=== PATIENT | male | born 1965 | race Caucasian/White ===

== ENCOUNTER 2025-08-26 09:58 | Outpatient (REF) | payer OTHER, SELFPAY ==
--- OUTSIDE RECORDS SUMMARY | 2022-11-07 10:35 | XMS_ITS | Encounter Summary ---
Author Organization [facility] Address [address] [place] [address] [place] [id number] Phone Care Team Providers Care Travel Administrator Name Role Phone Pcp, Unknown Primary Care Provider Unavailabl e Encounter Details Date Type Department Care Team (Late st Contact Info) Description 11/07/2022 10:35 AM EST Hospital Encounter [facility] [address] [place] [id number] Edith Casillas FNP [address] [place] [id number] [email or web address] Social History Tobacco Use Types Packs/Day Years Used Date Smoking Tobacco: Never Passive Smoke Exposure: Never Smokeless Tobacco: Never Education Answer Date Recorded Are you interested in more education? Not on miguel e 12/29/2022 Are you concerned about learning? Not on file 12/29/2022 No 12/29/2022 No 12/29/2022 Digital Access Answer Date Recorded No 01/29/2023 No 01/29/2023 Reliable internet access at home? Not on file 01/29/2023 Device with a working camera? Not on file Intimate Partner Violence Answer Date R ecorded Are you denied basic needs s uch as food, clothing, or medical care? No 06/23/2024 In the past 12 months have y ou been in a relationship with a person who hurts, threatens, or tries to control you? No 06/23/2024 Are you denied basic needs s uch as food, clothing, or medical care? No 06/23/2024 In the past 12 months have y ou been in a relationship with a person who hurts, threatens, or tries to control you? No 06/23/2024 Sex and Gender Information Value Date Recorded Sex Assigned at Male 05/24/2024 9:38 AM EDT Legal Sex Male 9:39 PM EDT Gender Identity Male 05/24/2024 9:38 AM EDT Sexual Orientation Straight 05/24/2024 9: 38 AM EDT documented as of this encounter Plan of Treatment Upcoming Encounters Date Type Department Care Team (Late st Contact Info) Description 09/23/2025 1:30 PM EST Office Visit [facility] at the [address], [address], [address] [place] [address] Janey Frausto, KAY [address] [place] [id number] 04/07/2026 10:30 AM EDT Office Visit [facility] at the [address], [address] [place] [address] Annamarie Patel MD [address] [place] [id number] documented as of this encounter Procedures Procedure Name Priority Date/Time Associated Diagnosis Comments XR CHEST PA AND LATERAL 2 VIEWS Urgent/patient waiting 11/07/2022 10:35 AM EST Contusion of chest wall, unspecified laterality, initial encounter documented in this encounter Results * XR CHEST PA AND LATERAL 2 VIEWS (11/07/2022 10:35 AM EST) Anatomical Region Laterality Modality Chest Computed Radiogr aphy 11/07/2022 10:3 9 AM EST Impressions 11/07/2022 10:42 AM EST No focal consolidation or pulmonary edema. Narrative 11/07/2022 10:42 AM EST XR CHEST PA AND LATERAL 2 VIEWS TECHNIQUE: XR CHEST PA AND LATERAL 2 VIEWS COMPARISON: None. FINDINGS: Lines/tubes: None. Lungs: Moderate lung volume. There is no evidence of pneumonia or pulmonary edema. Pleura: There is no pleural effusion or pneumothorax. Heart and mediastinum: The heart and the mediastinum are stable. Bones: Thoracic spine degenerative changes. Deformity of the right lower ribs suggest healed fractures. Procedure Note Gloria Leon MD - 11/07/2022 XR CHEST PA AND LATERAL 2 VIEWS TECHNIQUE: XR CHEST PA AND LATERAL 2 VIEWS COMPARISON: None. FINDINGS: Lines/tubes: None. Lungs: Moderate lung volume. There is no evidence of pneumonia orpulmonary edema. Pleura: There is no pleural effusion or pneumothorax. Heart and mediastinum: The heart and the mediastinum are stable. Bones: Thoracic spine degenerative changes. Deformity of the right lowerribs suggest healed fractures. IMPRESSION: No focal consolidation or pulmonary edema. Edith Casillas FREEZER UNLOADER IMG XR CHEST Final Resul t documented in this encounter Visit Diagnoses Not on filedocumented in this encounter Care Teams Travel Administrator Relationship Specialty Start Date End Date Pcp, Unknown PCP - General 11/07/22 05/06/24 documented as of this encounter Additional Source Comments The information contained in this document represents components of the legal health record. It is not the complete legal health record.[facility]
--- OUTSIDE RECORDS SUMMARY | 2025-08-26 10:10 | XMS_ITS | Encounter Summary ---
Author Organization [facility] Address [address] [facility] [place] [address] Phone Care Team Providers Care Treating Inspector Name Role Phone Ketty Silva MD Primary Care Provider [phone] Encounter Details Date Type Department Care Team (Late st Contact Info) Description 05/09/2024 Procedure Pass [facility] Referral Images [address] [facility] [address] [place] [address] Social History Tobacco Use Types Packs/Day Years [...] with a working camera? Not on file Sex and Gender Information Value Date Recorded Sex Assigned at Male 05/24/2024 9:38 AM EDT Legal Sex Male 9:39 PM EDT Gender Identity Male 05/24/2024 9:38 AM EDT Sexual Orientation Straight 05/24/2024 9: 38 AM EDT documented as of this encounter Plan of Treatment Upcoming Encounters Date Type Department Care Team (Late st Contact Info) Description 09/23/2025 1:30 PM EST Office Visit [facility] Cardiology Clinic at the [address], [address], [address] [place] [address] Janey Frausto, KAY [address] [address] [email or web address] 04/07/2026 10:30 AM EDT Office Visit [facility] Cardiology Clinic at the [facility] [address] [facility], 5th [address], [address] [place] [address] Annamarie Patel MD [address] [facility] [address] [place] [address] [email or web address] documented as of this encounter Visit Diagnoses Not on filedocumented in this encounter Care Teams Treating Inspector Relationship Specialty Start Date End Date Ketty Silva MD [address] [place] [address] PCP - General Internal Medicine 05/07/24 documented as of this encounter Additional Source Comments The information contained in this document represents components of the legal health record. It is not the complete legal health record.[facility]
--- OUTSIDE RECORDS SUMMARY | 2025-08-26 10:10 | XMS_ITS | Encounter Summary ---
Author Organization [facility] Address [address] [facility] [address] [facility] [address] [place] [address] Phone Care Team Providers Care Meat Carver Name Role Phone Ketty Silva MD Primary Care Provider [phone] Encounter Details Date Type Department Care Team (Late st Contact Info) Description 04/29/[address] [facility] - MRI [address] [facility], 6th [place] [address] Social History Tobacco Use Types Packs/Day Years [...] Description 09/23/2025 1:30 PM EST Office Visit [facility] Noninvasive Cardiology Clinic at the [address], [address] [place] [address] Janey Frausto CNP [address] [place] [id number] 04/07/2026 10:30 AM EDT Office Visit [facility] Cardiology Clinic at the [address], [address] [place] [address] Annamarie Patel MD [address] [place] [id number] [id number] documented as of this encounter Visit Diagnoses Not on filedocumented in this encounter Care Teams Meat Carver Relationship Specialty Start Date End Date Ketty Silva MD [address] [place] [address] PCP - General Internal Medicine 05/07/24 documented as of this encounter Additional Source Comments The information contained in this document represents components of the legal health record. It is not the complete legal health record.[facility]
--- OUTSIDE RECORDS SUMMARY | 2025-08-26 10:10 | XMS_ITS | Clinical Summary ---
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 021 Active acetaminophen (TYLENOL ORAL) Take 500 mg by mouth daily. Active medical supply, miscellaneous (MISCELLANEOUS MEDICAL SUPPLY MISC) CPAP Historical (HISTORICAL CPAP) Inhale 7-16 cm into the lungs at bedtime. [facility] 023 Active hydrOXYzine HCL (ATARAX) 10 mg tablet TAKE 1 TABLET BY MOUTH THREE TIMES A DAY NEEDED FOR ANXIETY, Historic Active tamsulosin (FLOMAX) 0.4 mg 24 hr capsule Take 1 Capsule by mouth daily. Take 30 mins after same meal every day., Historic Active isosorbide mononitrate (IMDUR) 120 mg 24 hr tablet Take 1 tablet (120 mg total) by mouth 1 (one) time each day. Do not crush or chew. 025 Active empagliflozin (Jardiance) 10 mg tablet Take 1 tablet (10 mg total) by mouth 1 (one) time each day. Active NIFEdipine (ADALAT CC) 30 mg 24 hr tablet TAKE 3 TABLETS (90 MG TOTAL) BY MOUTH 1 (ONE) TIME EACH DAY. 270 tablet 1 025 Active ezetimibe (ZETIA) 10 mg tablet TAKE 1 TABLET BY MOUTH EVERY DAY 90 tablet 3 025 Active pantoprazole (PROTONIX) 20 mg EC tablet TAKE 1 TABLET BY MOUTH TWICE A DAY 180 tablet 1 025 Active nitroglycerin (NITROSTAT) 0.[address] 1 TABLET UNDER THE TONGUE EVERY 5 MINUTES IF NEEDED FOR CHEST PAIN. 25 tablet 3 025 Active pramipexole (MIRAPEX) 1 mg tablet TAKE 1 TABLET BY MOUTH AT BEDTIME. 90 tablet 1 025 Active ranolazine (RANEXA) 1,000 mg 12 hr tablet TAKE 1 TABLET (1,000 MG TOTAL) BY MOUTH TWICE A DAY DO NOT CRUSH, CHEW, OR SPLIT 180 tablet 2 025 Active lisinopriL (PRINIVIL,ZESTRI L) 10 mg tabletIndication s:Essential hypertension TAKE 1 TABLET BY MOUTH EVERY DAY 90 tablet 025 Active aspirin 81 mg chewable tablet TAKE 1 TABLET BY MOUTH EVERY DAY 90 tablet 025 Active semaglutide (Wegovy) 1 mg/0.5 mL injection pen INJECT 1 PEN SUBCUTANEOUSLY EVERY 7 DAYS 2 mL 2 025 Active atorvastatin (LIPITOR) 80 mg tablet TAKE 1 TABLET BY MOUTH 1 TIME EACH DAY. 90 tablet 3 025 Active atorvastatin (LIPITOR) 80 mg tablet Take 1 tablet (80 mg total) by mouth 1 (one) time each day. 90 tablet 1 025 2024 Discontinued semaglutide (Wegovy) 1 mg/0.5 mL injection pen INJECT 1 PEN SUBCUTANEOUSLY EVERY 7 DAYS 2 mL 025 2024 Discontinued Active Problems Problem Noted Date Diagnosed Date Chronic heart failure with preserved ejection fr action 02/23/2025 Assessment & Plan (02/23/2025 12:01 PM EDT): Patient had Jardiance added in at previous appointment due to HFpEF. He appears euvolemic on exam. Can continue with current medication regimen. Like him to weigh himself daily report to the office if he gains more than 2 pounds in a day or 5 pounds in a week. Should limit his sodium consumption. Coronary artery vasospasm 01/12/2025 Assessment & Plan (02/23/2025 12:00 PM EDT): Patient is seeing the coronary artery vasospasm clinic and [facility]. Is utilizing Imdur 120 mg p.o. daily, Ranexa 1000 mg p.o. twice daily, nifedipine 90 mg p.o. daily. Can also continue to utilize sublingual nitroglycerin. Is starting cardiac rehab. Is actively trying to lose weight. Instructed to call 911 or go to the emergency room should the patient begin to experience chest pain or pressure lasting greater than 10 minutes does not resolve with rest. Preprocedural cardiovascular examination 025 Assessment & Plan (12/04/2024 1:18 PM EDT): There are no cardiovascular contraindications to back injections. No further testing needs to be done prior to getting the back injection. Atypical chest pain 05/30/2024 Assessment & Plan (07/08/2024 12:15 PM EST): Patient has longstanding history of atypical chest pain. As noted several times did see clinic at [facility] for refractory angina had workup which include cardiac cath which revealed patient has coronary vasospasms. Had been recently taken off of several of his antianginals due to hypotension. Will slowly add back in antianginal, we will start with nifedipine 30 mg extended release p.o. daily. Patient is also been asked to take his blood pressure measurements and reach out to the office in 7 to 10 days with his values. 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 - Obstructive Sleep Apnea - mild overall and severe in REM; all hypopneas; without sleep related hypoventilation by 2018 polysomnogram. PLMD (periodic limb movement disorder) 8 Overview (05/30/2024): Started Pramipexole Raynaud's disease without gangrene 10/15/2017 Coronary artery disease invo lving tununak coronary artery of tun[place]ak heart with angina pectoris 09/08/2016 Overview (12/04/2024): -Stable anginal symptoms starting in June 2016 roughly -Status post cardiac cath in August 2016 with cardiac cath on 08/10/2016 showing 80% D1 stenosis, 70% mid circumflex stenosis-given that stress testing was positive prior to this cath in the inferolateral wall, 2 drug-eluting stents were placed in the circumflex extending into the OM1 branch - Patient was readmitted 8 days later for ongoing chest discomfort-repeat cardiac cath on 08/21/2016 showed that the ramus stenosis was FFR positive-status post drug-eluting stent to the ramus branch, circumflex and OM stents were open and patent - Repeat cardiac cath in November 2016 showing in-stent restenosis of the ostial D1 which got angioplasty without stent placement and again showed patent circumflex/OM stent -Subsequent cardiac caths in 2020 and 2021 showed no areas for intervention - Because of suspicion for microvascular disease, the patient underwent PET stress test on 07/05/2023-this showed a small, mild infarct at the basal anterior and basal anteroseptal lloyd without maritza-infarct ischemia, there was reduced myocardial blood flow in all 3 major coronary artery territories at rest and reduced blood flow reserve poststress in the circumflex and LAD territories, there was normal TID ratio of 1.04 Patient had cardiac cath on 06/30/2024 at [facility]. This found the right iliofemoral angiogram visualized segments of the are EIA, are FLOUR MIXER HELPER, R SFA, R PFA are patent with no luminal stenosis. Arterial autonomy is in the R FLOUR MIXER HELPER over lower third of the femoral head. The coronary angiogram LM had no epicardial stenosis. Mild calcified plaque. The LAD: The entire vessel appears to have a small caliber due to spasm. The proximal LAD has a focal 20% stenosis. The mid to distal LAD has a myocardial bridge, the LCx is has a patent stent. Around 90% spasm proximal and distal to the stent. Ramus has a patent stent around 50% spasm proximal and distal to the stent. RCA the arteria appears overall spastic. The left heart cath no significant gradient on pullback of the aortic valve. Overall these findings were diagnostic of epicardial coronary vasospasm. He was given instructions to avoid beta-blockers as they can worsen spasm. His Imdur increased from 60 mg twice daily due to 220 mg twice daily. Titrate to maximal as tolerated. He is to continue nifedipine. Uptitrate the dose to maximally tolerated. Assessment & Plan (02/23/2025 11:57 AM EDT): No new or worsening anginal symptoms. Please see CAD details above. Not on metoprolol as it can worsen vasospasms. Continue on the high-dose atorvastatin and the baby aspirin. Instructed to call 911 or go to the emergency room should the patient begin to experience chest pain or pressure lasting greater than 10 minutes does not resolve with rest. Assessment & Plan (12/04/2024 1:18 PM EDT): Continues to have CCS class III-IV anginal symptoms. However, he has vasospastic angina. This can be very difficult to treat. We are gradually uptitrating medications. To that end, I am adding low-dose diltiazem 120 mg to his current regimen of nifedipine and Imdur and Ranexa. 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 He has previously had a bad reaction to this but this may have been situational. I also recommended that he try sublingual nitro again and I have sent a refill. I look forward to hearing what Dr. Patel has to say as well. Assessment & Plan (07/08/2024 12:13 PM EST): Patient utilizing statin and baby aspirin. Has had extensive workup including cardiac cath in June 2024. Patient was taken off of beta-tirpp as that can exacerbate microvascular disease and spasms, patient also having issues with hypotension due to several antianginals he has been on. Patient should adhere to a healthy cardiac diet, should limit fat and sodium intake. Target will be to bring LDL to 70 or below. Anxiety 06/01/2014 Essential hypertension 03/10/2010 Overview (05/30/2024): Last Assessment & Plan: Unfortunately the patient was experiencing symptoms of orthostatic hypotension but by reducing 2 of his medications in half earlier this year he has corrected the symptoms. After the visit I did more investigation suspicious of cutting nifedipine in half and in fact its not recommended, unfortunately they do not create a dose in a single pill that is equal to the 45 mg equivalent that he is taking so we have the option of starting at 30 mg extended release daily or seeing if he can tolerate 30 mg twice daily. He had been on 90 mg of the nifedipine at a time when he was experiencing hypotensive symptoms and dizziness, but is well isosorbide was cut in half as well so he may well tolerate this. Recommend lifestyle modifications Assessment & Plan (02/23/2025 11:58 AM EDT): Patient was switched off of the diltiazem, which it looks like that is an actual drug allergy, was placed back on the 60 mg in the feta pain. He is also taking maximum doses of Ranexa, Imdur, in addition to sublingual nitroglycerin as needed. He is scheduled to see [facility] again at their vasospasm clinic in 2 months. Starting cardiac rehab, he is also starting Wegovy to lose weight, as his symptoms were deemed likely multifactorial. Can continue to utilize as needed sublingual nitroglycerin as needed. Assessment & Plan (12/04/2024 1:18 PM EDT): - Generally well controlled based on home monitoring, with average systolic blood pressures ranging from 120s to 130s. - Diltiazem added for antianginal control and hypertension management. Assessment & Plan (07/08/2024 12:17 PM EST): Patient had been taken off of several medications with a hospital visit due to dizziness and hypotension. Patient is hypertensive at today's appointment, we will add in nifedipine 30 mg extended release p.o. daily. Patient will get back to the office in 10 days, if continues to be hypertensive, will start the patient back on his previous regiment which is 30 mg twice daily. He has been educated on signs of worsening symptoms and when to report to the office or when to present to the ER. Patient states he understands. Headache 03/10/2010 Mixed hyperlipidemia 03/10/2010 Overview (05/30/2024): Last Assessment & Plan: Most recent LDL 64 he is on maximum statin therapy but so not assessed by his follow-up visit they should be done at least on an annual basis. We will need to collect them lifestyle modifications limit simple carbohydrates try to walk to the best of his ability for exercise Assessment & Plan (12/04/2024 1:18 PM EDT): - Continue current regimen of maximum dose statin and Zetia. Assessment & Plan (07/08/2024 12:18 PM EST): Patient is on maximum statin therapy. Should continue to adhere to a cardiac healthy diet. Patient would benefit from losing weight. Should continue to exercise as tolerated. Limit simple carbohydrates. Resolved Problems Problem Noted Date Diagnosed Date Resolved Date Hypertension 08/26/2024 12/04/2024 Chest pain at rest 05/29/2022 Angina pectoris syndrome 06/20/201611/2024 Encounters Date Type Department Care Team Description 07/27/2025 1:15 PM EST Office Visit Adult Medicine - [address] [phone] Mary Gunn MD Essential hypertension (Primary Dx); Morbid obesity ([facility]/HCC V24, CMS/[facility] V28); Coronary artery vasospasm ([facility] V24); S/P primary angioplasty with coronary stent; Anxiety; Mixed hyperlipidemia; PLMD (periodic limb movement disorder); OANH on CPAP 06/12/2025 Telephone [facility] Cardiology [facility] [address] [facility] [address] [place] [address] Foreign Bill [place] 06/12/2025 Anticoagulation - Warfarin Visit [facility] [address] [place] [phone] Kristine Zepeda MD 06/01/2025 Telephone Adult Medicine - [place] [address] [place] [phone] Mary Gunn MD 06/01/2025 Telephone Pulmonology - [place] [address] [facility] [address] [place] [address] Dariana Carrillo MA from Last 3 Months Immunizations Immunization Administration Dates Next Due H1N1 Inj Preservative Free 04/13/2020 Influenza Quadravalent, MDCK , 0.5ml, preservative free (Flucelvax) 6mo and older 05/09/2023,06/12/2022,09/27/2021,06/17 Influenza trivalent, MDCK, 0 .5mL, preservative free (Flucelvax) 6mo and older 05/07/2024 Influenza trivalent, recombi nant, 0.5mL, preservative free (Flublok) 9yo and older 04/30/2025 Pfizer (ages 12 & older) Biv alent, COVID-19 06/02/2022 Pfizer SARS-CoV-2 COVID-19, mRNA, LNP-S, preservative free 06/02/2022 Pneumococcal conjugate 20 va lent (Prevnar 20, PCV 20) 2mo and older 02/14/2023 Pneumococcal polysaccharide 23 valent (Pneumovax 23) 2yo and older 04/12/2020 RSV, bivalent, protein subun it RSVpreF, 0.5mL, Preservative Free (Arexvy) 50yo and older 04/14/2025 Tdap Tetanus diptheria acell ular pertussis (Boostrix; Adacel) 7yo and older 04/03/2023,05/01/2012 Zoster recombinant (Shingrix ) 19yo and older 02/14/2023,04/13/2020 Surgical History Surgery Date Site/Laterality Comments CARDIAC CATHETERIZATION Medical History Medical History Date Comments Essential hypertension Angina pectoris syndrome ([facility] V24) CAD (coronary artery disease) Raynaud's disease without gangrene Mixed hyperlipidemia Severe obesity (BMI 35.0-39. 9) with comorbidity ([facility] V24, 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 Family History Medical History Relation Name Comments Prostate cancer Father Coronary artery disease Maternal Grandmother Peripheral vascular disease Mother Diabetes Other Blindness Neg Hx Cataracts Neg Hx Glaucoma Neg Hx Macular degeneration Neg Hx Strabismus Neg Hx Relation Name Status Comments Father Maternal Grandmother Mother Other Aunt Social History Tobacco Use Types Packs/Day Years Used Date Smoking Tobacco: Never Smokeless Tobacco: Never Tobacco Cessation:Counseling Given: Not Answered Alcohol Use Standard Drinks/Week Comments Not Currently 0 (1 standard drink = 0.6 oz pur e alcohol) 2 TIMES MONTHLY Housing Instability Answer Date Recorde d Are you worried that in the next 2 months you may not have stable housing? No 01/11/2025 Food Access & Nutrition Answer Date Rec orded Do you have access to a vari ety of food including fruits and vegetables? Yes 01/11/2025 Access to Healthcare Answer Date Record ed Within the last 3 months, ho w many times did you visit the emergency department for your medical care? 0 01/11/2025 Health Literacy Answer Date Recorded How often do you need to hav e someone help you when you read instructions, pamphlets, or other written material from your doctor or pharmacy? Never 01/11/2025 Caregiver: How often do you need to have someone help you when you read instructions, pamphlets, or other written material from your doctor or pharmacy? Not on file 01/11/2025 Financial Risk Answer Date Recorded How hard is it for you to pa y for the very basics like food, housing, medical care, and air conditioning / heating? Not very hard 01/11/2025 Transportation Answer Date Recorded Has the lack of transportati on kept you from meetings, work, or from getting things needed for daily living? No Has the lack of transportati on kept you from medical appointments or from getting medications? No 01/11/2025 Social Isolation Answer Date Recorded How often do you feel lonely or isolated from th ose around you? Rarely 01/11/2025 Food Risk Answer Date Recorded Within the past 12 months we worried whether our food would run out before we got money to buy more. Never true 01/11/2025 Within the past 12 months th e food we bought just didn't last and we didn't have money to get more. Never true 01/11/2025 Dependent Care Answer Date Recorded Do you need help finding or paying for care for your loved ones. For example, early childhood assistant or elderly care for an older adult? No 01/11/2025 Education Answer Date Recorded Do you think completing more education or training, like finishing a GED, going to college, or learning a trade, would be helpful for you? No 01/11/2025 Employment and Income Answer Date Recor ded During the last four weeks, have you been actively looking for work? No 01/11/2025 Living Situation Answer Date Recorded What is your living situation? Unrecognized valu e 01/11/2025 Sex and Gender Information Value Date Recorded Sex Assigned at Not on file Legal Sex Male 10:48 AM EST Gender Identity Not on file Sexual Orientation Not on file Last Filed Vital Signs Vital Sign Reading Time Taken Comments Blood Pressure 100/62 07/27/2025 12:44 PM EST Pulse 112 07/27/2025 12:44 PM EST Temperature 36.1 C (96.9 F) 07/27/2025 12:44 PM EST Respiratory Rate 16 07/27/2025 12:44 PM EST Oxygen Saturation 92% 05/26/2025 9:19 AM EDT Inhaled Oxygen Concentration - - Weight 112 kg (246 lb) 07/27/2025 12:44 PM EST Height 179 cm (5' 10.47 ) 07/27/2025 12:44 PM ES T Body Mass Index 34.83 07/27/2025 12:44 PM EST Plan of Treatment Upcoming Encounters Date Type Department Care Team (Late st Contact Info) Description 10/22/2025 8:15 AM EST Office Visit Bariatric Surgery - [place] [address] [facility] [address] [place] [phone] Kamila Castillo MD [address] [place] [phone] 01/14/2026 9:00 AM EDT Office Visit Adult Medicine - [place] [address] [place] [phone] Douglas Ford PA [address] [place] [address] 05/26/2026 9:45 AM EDT Office Visit Pulmonology - [place] [address] [facility] [address] [place] [phone] Yolette Jackson NP [address] [place] [phone] Health Maintenance Due Date Last Done Comments Hepatitis B Vaccines (1 of 3 - 19+ 3-dose series) 1984 HIV Screening 08/12/2022 Social Influencers of Health Screening 01/11/2026 01/11/2025 Hypertension/CHF/CAD Annual BMP Blood Test 01/12/2026 01/12/2025, 05/28/2024, 11/08/2023 Medicare Annual Wellness Visit 01/12/2026 Postponed from 08/12/2022 (Not clinically appropriate to address at this time) Cholesterol Screening (Lipid Panel) 12/17/2029 12/17/2024, 05/28/2024, 02/05/2024, Additional history exists Colorectal Cancer Screening: Colonoscopy 06/09/2032 06/09/2022 DTaP,Tdap,and Td Vaccines (3 - Td or Tdap) 04/03/2033 04/03/2023, 05/01/2012 Hepatitis C Screening Completed 05/29/2016 Pneumococcal Vaccine: 50+ Years Completed 02/14/2023, 04/12/2020 Zoster Vaccines Completed 02/14/2023, 04/13/2020 Depression Screening Completed 01/11/2025 RSV Immunization Adult Patients Completed 04/14/2025 Influenza Vaccine Completed 04/30/2025, , 05/09/2023, Additional history exists COVID-19 Vaccine Completed 07/08/2025, 11/2022, 06/02/2022, Additional history exists HIB Vaccines Aged Out No longer eligi ble based on patient's age to complete this topic HPV Vaccines Aged Out No longer eligi ble based on patient's age to complete this topic Hepatitis A Vaccines Aged Out No long er eligible based on patient's age to complete this topic IPV Vaccines Aged Out No longer eligi ble based on patient's age to complete this topic MMR Vaccines Aged Out No longer eligi ble based on patient's age to complete this topic Meningococcal ACWY Vaccine Aged Out N o longer eligible based on patient's age to complete this topic Meningococcal B Vaccine Aged Out No l onger eligible based on patient's age to complete this topic RSV Immunization Patients Under 20 months Aged Out No longer eligible b ased on patient's age to complete this topic Varicella Vaccines Aged Out No longer eligible based on patient's age to complete this topic Procedures Procedure Name Priority Date/Time Associated Diagnosis Comments OVERNIGHT PULSE OXIMETRY Routine 07/22/2025 3:16 PM EST Obstructive sleep apnea Essential hypertension Coronary artery disease involving tununak coronary artery of tun[place] heart with angina pectoris (CMS/HCC V24) Morbid obesity (CMS/HCC V24, CMS/[facility] V28) COMPREHENSIVE METABOLIC PANEL Routine 01/12/2025 12:48 PM EDT Routine general medical examination at a health care facility LIPID PANEL Routine 02/05/2024 HM COLONOSCOPY Routine 06/09/2022 HEPATITIS C SCREENING Routine 05/29/2016 from Last 3 Months or Most Recently Relevant to Health Maintenance Results * Overnight Pulse Oximetry (07/22/2025 3:16 PM EST) us Yolette Jackson COLD ROLL OPERATOR RESPIRATORY CARE ORDERA BLES Final Result * (ABNORMAL) Comprehensive metabolic panel (01/12/2025 12:48 PM EDT) Sodium 143 133 - 145 mmol/L LAB CHEMISTRY METHOD 01/12/2025 4:01 PM [facility] Potassium 4.2 3.5 - 5.5 mmol/L LAB CHEMISTRY METHOD 01/12/2025 4:01 PM [facility] Chloride 111(H) 96 - 110 mmol/L LAB CHEMISTRY METHOD 01/12/2025 4:01 PM [facility] CO2 28 21 - 32 mmol/L LAB CHEMISTRY METHOD 01/12/2025 4:01 PM [facility] Anion Gap 4 3 - 11 LAB CHEMISTRY METHOD 01/12/2025 4:01 PM [facility] Glucose 98 70 - 100 mg/dL LAB CHEMISTRY METHOD 01/12/2025 4:01 PM [facility] BUN 16 5 - 25 mg/dL LAB CHEMISTRY METHOD 01/12/2025 4:01 PM [facility] Creatinine 0.88 0.70 - 1.30 mg/dL LAB CHEMISTRY METHOD 01/12/2025 4:01 PM [facility] eGFR 100 >=60 mL/min/1. 73m2 LAB CHEMISTRY METHOD 01/12/2025 4:01 PM [facility] Comment:Calculation based on the Chronic Kidney Disease Epidemiology Collaboration (CKD-EPI) equation refit without adjustment for race. BUN/Creatinine Ratio 18.2 LAB CHEMISTRY METHOD 01/12/2025 4:01 PM [facility] Calcium 8.8 8.5 - 10.5 mg/dL LAB CHEMISTRY METHOD 01/12/2025 4:01 PM [facility] AST (SGOT) 30 10 - 42 unit/L LAB CHEMISTRY METHOD 01/12/2025 4:01 PM [facility] ALT (SGPT) 87(H) 10 - 60 unit/L LAB CHEMISTRY METHOD 01/12/2025 4:01 PM EDT [facility] Alkaline Phosphatase 130(H) 42 - 121 unit/L LAB CHEMISTRY METHOD 01/12/2025 4:01 PM EDT [facility] [facility] Total Protein 6.9 6.0 - 8.0 g/dL LAB CHEMISTRY METHOD 01/12/2025 4:01 PM EDT [facility] Albumin 3.8 3.2 - 5.0 g/dL LAB CHEMISTRY METHOD 01/12/2025 4:01 PM EDT [facility] Total Bilirubin 0.6 0.0 - 1.4 mg/dL LAB CHEMISTRY METHOD 01/12/2025 4:01 PM EDT [facility] Blood Venous blood specimen / Unknown Venipuncture / Unknown 01/12/2025 12:48 PM EDT 01/12/2025 12:48 PM EDT Douglas ARMENDARIZ LAB BLOOD ORDERABLES Final Re sult [facility] [address] [place] [address], * Lipid panel (02/05/2024) [facility] LDL/HDL Ratio 2 Triglycerides 91 0 - 150 mg/dL Cholesterol 144 0 - 200 mg/dL HDL 62 >=40 mg/dL LDL Cholesterol 64 0 - 100 mg/dL Blood Venous blood specimen / Unknown Historical Provider LAB BLOOD ORDERABLES Alexa l Result * Colonoscopy (06/09/2022) [facility] Colonoscopy No Interpretation , Abstracted Anatomical Region Laterality Modality Other Historical Provider HEALTH MAINTENANCE Final Result * Hepatitis C Screening (05/29/2016) [facility] Hepatitis C Screening Abstracted us Historical Provider HEALTH MAINTENANCE Final Result from Last 3 Months or Most Recently Relevant to Health Maintenance Insurance [employer] MEDICARE Member Subscriber Plan / Payer (Ef fective 2020-Present) Name:BETHANY BUTTS Relation to Subscriber:Self Name:Bethany Butts Payer ID:[id number] Group ID:[id number] Type:Not on file Address: [place] [address] [place] [id number] Care Teams Metal Roofing Mechanic Relationship Specialty Start Date End Date Mary Gunn MD [address] [place] [id number] PCP - General 07/01/24
--- OUTSIDE RECORDS SUMMARY | 2025-08-26 10:10 | XMS_ITS | Encounter Summary ---
Author Organization [facility] Address [address] [facility] [address] [place] [address] Phone Care Team Providers Care Stone Trimmer Name Role Phone Ketty Silva MD Primary Care Provider [phone] Encounter Details Date Type Department Care Team (Late st Contact Info) Description 04/29/2025 Procedure Pass [facility] - MRI [address] [facility], 6th [place] [address] Social History Tobacco Use Types Packs/Day Years [...] Description 09/23/2025 1:30 PM EST Office Visit [facility] Noninvasive Cardiology Clinic at the [address], 5[address] Floor, [address] [place] [address] Janey Frausto CNP [address] [place] [address] 04/07/2026 10:30 AM EDT Office Visit [facility] Cardiology Clinic at the [address], 5[address], [address] [place] [address] Annamarie Patel MD [address] [place] [address] [address] documented as of this encounter Visit Diagnoses Not on filedocumented in this encounter Care Teams Stone Trimmer Relationship Specialty Start Date End Date Ketty Silva MD [address] [place] [address] PCP - General Internal Medicine 05/07/24 documented as of this encounter Additional Source Comments The information contained in this document represents components of the legal health record. It is not the complete legal health record.[facility]
--- OUTSIDE RECORDS SUMMARY | 2025-08-26 10:10 | XMS_ITS | Encounter Summary ---
Author Organization [facility] Address [address] [place] [address] [place] [address] Phone Care Team Providers Care Director Of Payroll Name Role Phone Ketty Silva MD Primary Care Provider [phone] [phone] Encounter Details Date Type Department Care Team (Late st Contact Info) Description 12/17/2024 Procedure Pass [facility] Cardiac Ultrasound [address] [place] [address] Social History Tobacco Use Types Packs/Day Years [...] Description 09/23/2025 1:30 PM EST Office Visit [facility] Noninvasive Cardiology Clinic at the [facility] [address] [facility], 5th Floor, [address] [place] [address] Janey Frausto, BOIL OFF WORKER [address] [address] 04/07/2026 10:30 AM EDT Office Visit [facility] Cardiology Clinic at the [facility] [address] [facility], 5th Floor, [address] [place] [address] Annamarie Patel MD [address] [place] [address] [address] [place] [address] documented as of this encounter Visit Diagnoses Not on filedocumented in this encounter Care Teams Director Of Payroll Relationship Specialty Start Date End Date Ketty Silva MD [address] [place] [address] PCP - General Internal Medicine 05/07/24 documented as of this encounter Additional Source Comments The information contained in this document represents components of the legal health record. It is not the complete legal health record.[facility]
--- OUTSIDE RECORDS SUMMARY | 2025-08-26 10:10 | XMS_ITS | Clinical Summary ---
Author Organization [facility] Address [address] [facility] [address] [place] [address] Phone Care Team Providers Care Risk Specialist Name Role Phone Ketty Silva MD Primary Care Provider [phone] Allergies Active Allergy Reactions Criticality Noted Date Comments Diltiazem Hcl Dizziness 06/24/2025 Medications aspirin 81 mg chewable tablet Take 81 mg by mouth. 2 Active atorvastatin (LIPITOR) 80 MG tablet Take 80 mg by mouth daily. 3 Active pantoprazole (PROTONIX) 20 MG tablet Take 20 mg by mouth 2 (two) times a day. 3 Active pramipexole (MIRAPEX) 1 MG tablet TAKE 1 TABLET BY MOUTH EVERYDAY AT BEDTIME 3 Active ranolazine (RANEXA) 1,000 mg SR tablet Take 1,000 mg by mouth 2 (two) times a day. 3 Active venlafaxine (EFFEXOR-XR) 75 MG 24 hr capsule Take 75 mg by mouth 2 (two) times a day. 3 Active ezetimibe (ZETIA) 10 mg tablet Take 10 mg by mouth daily. Active tamsulosin (FLOMAX) 0.4 mg Cap Take 0.4 mg by mouth daily. Active NIFEdipine (ADALAT CC) 30 MG 24 hr tablet Take 60 mg by mouth 2 (two) times a day. Active isosorbide mononitrate (IMDUR) 120 MG 24 hr tablet Take 1 tablet (120 mg total) by mouth 2 (two) times a day (once in the morning and once in the afternoon). 180 tablet 3 4 Active empagliflozin (JARDIANCE) 10 mg tablet Take 1 tablet (10 mg total) by mouth daily. 90 tablet 3 5 Active lisinopril (PRINIVIL,ZESTRI L) 10 MG tablet Take 10 mg by mouth daily. Active gabapentin (NEURONTIN) 100 MG capsule Take 2 capsules (200 mg total) by mouth nightly at bedtime. 60 capsule 3 5 Active Additional Information Patient not taking.Reported on 06/24/2025 nitroglycerin (NITROSTAT) 0.[address] 0.4 mg under the tongue every 5 (five) minutes as needed for chest pain. Active Active Problems No known active problems Encounters Date Type Department Care Team Description 06/24/2025 9:30 AM EDT Office Visit [facility] Cardiology Clinic at the [address], 5th Floor, [address] [place] [address] Annamarie Patel MD Coronary artery disease of [place] artery of [place] heart with stable angina pectoris (Primary Dx); Coronary artery spasm; Chronic heart failure with preserved ejection fraction (HFpEF); Class 2 severe obesity with serious comorbidity and body mass index (BMI) of 39.0 to 39.9 in adult, unspecified obesity type 06/03/2025 8:01 AM EDT - 06/03/2025 11:59 PM EDT Hospital Encounter [facility] [address] [facility], [address] [place] [address] Gerardo Sandoval MD Discharge Disposition: Home or Self Care 05/29/2025 4:57 PM EDT - 05/29/2025 11:59 PM EDT Hospital Encounter [facility] - MRI [address] [place] [address], 6th [place] [address] Gerardo Sandoval MD Discharge Disposition: Home or Self Care 05/29/2025 4:56 PM EDT Hospital Encounter [facility] - MRI [address] [place] [address], [address]th [place] [address] Jaime, Gerardo, MD Discharge Disposition: Home or Self Care 04/29/2025 Procedure Pass [facility] - MRI [address] [facility], 6th [place] [address] 04/29/2025 Procedure Pass [facility] - MRI [address] [facility], 6th [place] [address] from Last 3 Months Social History Tobacco Use Types Packs/Day Years Used Date Smoking Tobacco: Never Passive Smoke Exposure: Never Smokeless Tobacco: Never Tobacco Cessation:Counseling Given: Not Answered Education Answer Date Recorded Are you interested [...] Orientation Straight 05/24/2024 9: 38 AM EDT Last Filed Vital Signs Vital Sign Reading Time Taken Comments Blood Pressure 126/71 06/24/2025 9:33 AM EDT Pulse 95 06/24/2025 9:33 AM EDT Temperature 36.5 C (97.7 F) 11/07/2022 10:16 AM EST Respiratory Rate 21 06/23/2024 1:00 PM EDT Oxygen Saturation 95% 04/29/2025 2:23 PM EDT Inhaled Oxygen Concentration - - Weight 117.5 kg (259 lb) 06/24/2025 9:33 AM EDT Height 172.7 cm (5' 8 ) 03/18/2025 9:40 AM EDT Body Mass Index 39.38 03/18/2025 9:40 AM EDT Plan of Treatment Upcoming Encounters Date Type Department Care Team (Late st Contact Info) Description 09/23/2025 1:30 PM EST Office Visit [facility] Clinic at the [address], 5th [address], [address] [place] [address] Janey Frausto, LEMON PICKER [address] [place] [address] [email or web address] 04/07/2026 10:30 AM EDT Office Visit [facility] Clinic at the [address], 5th [address], [address] [place] [address] Annamarie Patel MD [address] [place] [address] [address] [email or web address] Health Maintenance Due Date Last Done Comments DEPRESSION SCREENING 1978 HEPATITIS C SCREENING 1984 HIV ONE-TIME SCREENING (18-65 YEARS) 1984 COLOGUARD 2011 COLONOSCOPY 2011 COLORECTAL CANCER SCREENING 2011 FIT TEST 2011 FOBT 2011 SIGMOIDOSCOPY 2011 VIRTUAL COLONOSCOPY 2011 RSV VACCINE (1 - Risk 50-74 years 1-dose series) 2016 INFLUENZA VACCINE (#1) 2025 , 05/09/2023, 06/12/2022, Additional history exists COVID-19 VACCINE ( season) 2025 07/06/2023, 06/02/2022, 06/02/2022, Additional history exists CREATININE LEVEL 05/28/2025 05/28/2024 POTASSIUM LEVEL 05/28/2025 05/28/2024 SCREENING FOR DIABETES 12/18/2027 12/17/2024, 2023 Adult Td,Tdap Booster 04/03/2033 04/03/2023, 012 PNEUMOCOCCAL VACCINES (50+ years) Completed 02/14/2023, 04/12/2020 ZOSTER VACCINES Completed 02/14/2023, 04/13/2020 SMOKING STATUS SCREENING (Once After 26 Yrs) Completed 03/18/2025 HEPATITIS A VACCINES Aged Out No long er eligible based on patient's age to complete this topic HIB VACCINES Aged Out No longer eligi ble based on patient's age to complete this topic MENINGOCOCCAL VACCINES (ACWY) Aged Out No longer eligible based on patient's age to complete this topic MENINGOCOCCAL VACCINES (B) Aged Out N o longer eligible based on patient's age to complete this topic Medical Devices Not on file Procedures Procedure Name Priority Date/Time Associated Diagnosis Comments ECG 12-LEAD Routine 06/24/2025 9:30 AM EDT Coronary artery disease of [place] artery of [place] heart with stable angina pectoris MRI LUMBAR SPINE (NEURO) WITHOUT CONTRAST Routine 05/29/2025 6:01 PM EDT Arthropathy MRI THORACIC SPINE (NEURO) WITHOUT CONTRAST Routine 05/29/2025 5:46 PM EDT Arthropathy COMPREHENSIVE METABOLIC PANEL (CMP) Routine 05/28/2024 10:55 AM EDT Chronic coronary microvascular dysfunction from Last 3 Months or Most Recently Relevant to Health Maintenance Results * ECG 12-LEAD (06/24/2025 9:30 AM EDT) Systolic Blood Pressure [facility] Diastolic Blood Pressure [facility] Ventricular Rate EKG/MIN 95 BPM [facility] Atrial Rate 95 BPM [facility] RI Interval 144 ms [facility] QRS Duration 80 ms [facility] QT Interval 344 ms [facility] QTC Interval 432 ms [facility] P [place] 40 degrees [facility] R Wave [place] -17 degrees [facility] T Wave [place] 65 degrees [facility] 06/24/2025 9:30 AM EDT 06/24/2025 9:32 AM EDT Narrative [facility] - 06/24/2025 9:32 AM EDT NORMAL SINUS RHYTHM LEFTWARD AXIS (POSSIBLE OLD IMI) WHEN COMPARED WITH ECG OF 18-Mar-2025 11:28, Q WAVES ARE LESS APPARENT IN THE INFERIOR LEADS Electronically Signed in MUSE system. Confirmed by Juan Manuel Patel, Annamarie ([id number]) on 06/24/2025 9:32:23 AM us Annamarie Patel MD ECG ORDERABLES Final Result [facility] * MRI LUMBAR SPINE (NEURO) WITHOUT CONTRAST (05/29/2025 6:01 PM EDT) Anatomical Region Laterality Modality L-spine Magnetic Resonan ce 06/01/2025 8:53 AM EDT Impressions 06/01/2025 11:31 AM EDT Multilevel degenerative changes of the lumbar spine, most prominent at L3-L4 where there is severe spinal canal stenosis. Additionally, moderate right foraminal stenosis at L4-L5. ATTESTATION: I, Dr. Marciano Daly as teaching physician, have reviewed the images for this case and if necessary edited the report originally created by Curry Deshpande. Narrative 06/01/2025 11:31 AM EDT MRI LUMBAR SPINE (NEURO) WITHOUT CONTRAST Referring clinician's provided indication for this examination in Epic: * Osteoarthritis, lumbosacral; evaluate for Spinal cord stimulator TECHNIQUE: Multi-sequence, multi-planar MRI of the lumbar spine was performed without intravenous contrast. COMPARISON: None. FINDINGS: LUMBAR SPINE Alignment and Vertebrae: Normal alignment. 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 No acute fracture. Marrow: No suspicious osseous lesion. Discs and Endplates: Mild disc desiccation and moderate disc height loss at L3- L4. Mild disc loss at L5-S1. Conus: Conus terminates at the level of L1-L2 intervertebral disc without significant cord signal abnormality. Soft Tissues: No prevertebral edema. Findings by level: T12-L1: Mild bilateral facet arthrosis without spinal or foraminal stenosis. L1-L2: Mild right and moderate left facet arthrosis without spinal foraminal stenosis. L2-L3: Moderate bilateral facet arthrosis, ligamentum flavum hypertrophy, and congenital shortening of the bilateral pedicles causes mild spinal canal stenosis. No foraminal stenosis. L3-L4: Disc bulge, moderate bilateral facet arthrosis, ligamentum flavum hypertrophy, and congenital shortening of the bilateral pedicles causes severe spinal canal stenosis and mild right foraminal stenosis. No left foraminal stenosis. Small effusion within the right L3-L4 facet joint. L4-L5: Disc bulge, moderate bilateral facet arthrosis, ligamentum flavum hypertrophy, congenital shortening of the bilateral pedicles causes mild spinal canal stenosis as well as moderate right and mild left foraminal stenosis. Small effusion within the left L4-L5 facet joint. L5-S1: Disc bulge and mild bilateral facet arthrosis causes no spinal canal or foraminal stenosis. Procedure Note Marciano Daly MD - 06/01/2025 MRI LUMBAR SPINE (NEURO) WITHOUT CONTRAST Referring clinician's provided indication for this examination in Epic: *Osteoarthritis, lumbosacral; evaluate for Spinal cord stimulator TECHNIQUE: Multi-sequence, multi-planar MRI of the lumbar spine wasperformed without intravenous contrast. COMPARISON: None. FINDINGS: LUMBAR SPINE Alignment and Vertebrae: Normal alignment. Congenitally shortened pediclesfrom L2 to L4. No acute fracture. Marrow: No suspicious osseous lesion. Discs and Endplates: Mild disc desiccation and moderate disc height lossat L3- L4. Mild disc loss at L5-S1. Conus: Conus terminates at the level of L1-L2 intervertebral disc withoutsignificant cord signal abnormality. Soft Tissues: No prevertebral edema. Findings by level: T12-L1: Mild bilateral facet arthrosis without spinal or foraminalstenosis. L1-L2: Mild right and moderate left facet arthrosis without spinalforaminal stenosis. L2-L3: Moderate bilateral facet arthrosis, ligamentum flavum hypertrophy,and congenital shortening of the bilateral pedicles causes mild spinalcanal stenosis. No foraminal stenosis. L3-L4: Disc bulge, moderate bilateral facet arthrosis, ligamentum flavumhypertrophy, and congenital shortening of the bilateral pedicles causessevere spinal canal stenosis and mild right foraminal stenosis. No leftforaminal stenosis. Small effusion within the right L3-L4 facet joint. L4-L5: Disc bulge, moderate bilateral facet arthrosis, ligamentum flavumhypertrophy, congenital shortening of the bilateral pedicles causes mildspinal canal stenosis as well as moderate right and mild left foraminalstenosis. Small effusion within the left L4-L5 facet joint. L5-S1: Disc bulge and mild bilateral facet arthrosis causes no spinalcanal or foraminal stenosis. IMPRESSION: Multilevel degenerative changes of the lumbar spine, most prominent atL3-L4 where there is severe spinal canal stenosis. Additionally, moderateright foraminal stenosis at L4-L5. ATTESTATION: I, Dr. Marciano Daly as teaching physician, have reviewed theimages for this case and if necessary edited the report originally createdby Curry Deshpande. us Gerardo Sandoval MD IMG MR XSPECIALTY Final Result * MRI THORACIC SPINE (NEURO) WITHOUT CONTRAST (05/29/2025 5:46 PM EDT) Anatomical Region Laterality Modality T-spine Magnetic Resonan ce 06/01/2025 3:24 PM EDT Impressions 06/02/2025 1:14 AM EDT Mild thoracic spine degenerative changes. No significant spinal or foraminal stenosis. ATTESTATION: I, Dr. Milton Woods as teaching physician, have reviewed the images for this case and if necessary edited the report originally created by Cecelia Costello. Narrative 06/02/2025 1:14 AM EDT MRI THORACIC SPINE (NEURO) WITHOUT CONTRAST Referring clinician's provided indication for this examination in Epic: * Mid- back pain; evaluate for Spinal cord stimulator TECHNIQUE: MRI THORACIC SPINE (NEURO) WITHOUT CONTRAST COMPARISON: Correlation made to CTA chest 05/20/2012 FINDINGS: Alignment and Vertebrae: Mildly exaggerated thoracic kyphosis with mild superior endplate height loss involving the T2 and T3 vertebral bodies. No acute compression fracture. Marrow: No bone marrow replacing lesion. Discs and Endplates: Mild multilevel disc degenerative changes noted at T1-T2, T4-T5 and T5-T6. There is mild endplate degenerative remodeling and Schmorl's node at T1-2 and T2-T3. No high-grade spinal or foraminal stenosis Spinal Cord: No spinal cord compression or signal abnormality. Extraspinal findings: No prevertebral edema or mass. Procedure Note Milton Woods MD - 06/02/2025 MRI THORACIC SPINE (NEURO) WITHOUT CONTRAST Referring clinician's provided indication for this examination in Epic: *Mid- back pain; evaluate for Spinal cord stimulator TECHNIQUE: MRI THORACIC SPINE (NEURO) WITHOUT CONTRAST COMPARISON: Correlation made to CTA chest 05/20/2012 FINDINGS: Alignment and Vertebrae: Mildly exaggerated thoracic kyphosis with mildsuperior endplate height loss involving the T2 and T3 vertebral bodies. Noacute compression fracture. Marrow: No bone marrow replacing lesion. Discs and Endplates: Mild multilevel disc degenerative changes noted atT1-T2, T4-T5 and T5-T6. There is mild endplate degenerative remodeling andSchmorl's node at T1-2 and T2-T3. No high-grade spinal or foraminalstenosis Spinal Cord: No spinal cord compression or signal abnormality. Extraspinal findings: No prevertebral edema or mass. IMPRESSION: Mild thoracic spine degenerative changes. No significant spinal orforaminal stenosis. ATTESTATION: I, Dr. Milton Woods as teaching physician, have reviewed theimages for this case and if necessary edited the report originally createdby Cecelia Costello. Gerardo Sandoval MD [facility] MR XSPECIALTY Final Result * (ABNORMAL) Comprehensive metabolic panel (05/28/2024 10:55 AM EDT) SODIUM 142 135 - 145 mmol/L [facility] POTASSIUM 4.1 3.4 - 5.0 mmol/L [facility] CHLORIDE 103 98 - 108 mmol/L [facility] CO2 27 23 - 32 mmol/L [facility] BUN 16 8 - 25 mg/dL [facility] CREATININE 1.08 0.60 - 1.50 mg/dL [facility] GLUCOSE 105 70 - 110 mg/dL [facility] ALBUMIN 4.7 3.3 - 5.0 g/dL [facility] TOTAL PROTEIN 7.6 6.0 - 8.3 g/dL [facility] CALCIUM 10.1 8.5 - 10.5 mg/dL [facility] ALKALINE PHOSPHATASE 97 45 - 115 U/L [facility] TOTAL BILIRUBIN 0.6 0.0 - 1.0 mg/dL [facility] AST 31 10 - 40 U/L [facility] ALT 64(H) 10 - 55 U/L [facility] GLOBULIN 2.9 1.9 - 4.1 g/dL [facility] EGFR 80 >59 mL/min/1. 73m2 [facility] Comment:Estimated glomerular filtration rate calculated using the CKD-EPI refit equation. ANION GAP 12 3 - 17 mmol/L [facility] 05/28/2024 10:5 5 AM EDT 05/28/2024 1:28 PM EDT us Eder Bennett MD, MPH LAB BLOOD BKR ORDERABLES Fin al Result [address] [address] from Last 3 Months or Most Recently Relevant to Health Maintenance Insurance [facility] MEDICARE REPLACEMENT MEDICARE PART A & B [facility] MEDICARE REPLACEMENT MEDICARE PART A & B [facility] CARE MEDICARE REPLACEMENT MEDICARE PART A & B [facility] MEDICARE REPLACEMENT MEDICARE PART A & B [facility] MEDICARE REPLACEMENT MEDICARE PART A & B [facility] MEDICARE REPLACEMENT [place] [id number] MEDICARE PART A & B Care Teams Risk Specialist Relationship Specialty Start Date End Date Ketty Silva MD [address] [place] [address] PCP - General Internal Medicine 05/07/24 Additional Source Comments The information contained in this document represents components of the legal health record. It is not the complete legal health record.[facility]
--- OUTSIDE RECORDS SUMMARY | 2025-08-26 10:10 | XMS_ITS | Encounter Summary ---
Author Organization [facility] Address [address] [facility] [address] [place] [address] Phone Care Team Providers Care Animal Daycare Provider Name Role Phone Ketty Silva MD Primary Care Provider [phone] Encounter Details Date Type Department Care Team (Late st Contact Info) Description 06/23/2024 Procedure Pass [facility] Cardiac Timber Harvester Operator [address] [facility], [address], [address] [place] [address] Social History Tobacco Use Types Packs/Day Years [...] Description 09/23/2025 1:30 PM EST Office Visit [facility] Noninvasive Cardiology Clinic at the [address], 5[address], [address] [place] [address] Janey Frausto CNP [address] [place] [address] [email or web address] 04/07/2026 10:30 AM EDT Office Visit [facility] Cardiology Clinic at the [address], 5th [address], [address] [place] [address] Annamarie Patel MD [address] [place] [address] [address] documented as of this encounter Visit Diagnoses Not on filedocumented in this encounter Care Teams Animal Daycare Provider Relationship Specialty Start Date End Date Ketty Silva MD [address] [place] [address] PCP - General Internal Medicine 05/07/24 documented as of this encounter Additional Source Comments The information contained in this document represents components of the legal health record. It is not the complete legal health record.[facility]
== END 2025-08-26 09:59 | disposition home or self-care (01) ==
LOC: HO.SH 09:58
PROVIDERS: PCP Family Medicine; Visit Provider Family Medicine
DX: H90.3 Sensorineural hearing loss, bilateral (principal)
CPT/HCPCS: 92557